=== PATIENT | male | born 1985 | race African-American/Black ===

== ENCOUNTER 2016-07-15 07:56 | Emergency (ER) | payer OTHER ==
[~2016-07-15] VITALS: Ht 175.3 cm; Wt 93.0 kg
[~2016-07-15 07:56] MED LIST: BACLOFEN10 M1 PO; FLEXERIL10 MG PO; IBUPROFEN600 M1 PO; MOBIC15 MG PO; ULTRAM50 M1 PO
[2016-07-15] MEDS ORDERED: NASONEX17 GM NASB (08:21)
[2016-07-15] MEDS ORDERED: IBUPROFEN800 M1 PO (08:21)
[2016-07-15] MEDS ORDERED: AMOXICILLIN875 M1 PO (08:21)
--- NOTE | 2016-07-15 08:22 | ED THROAT/DENTAL COMPLAINT ---
History of Present Illness General Chief Complaint: Sore Throat, Dental Pain Stated Complaint: SORE THROAT Source: patient Exam Limitations: no limitations Vital Signs & Intake/Output Vital Signs & Intake/Output Vital Signs Date Time Temp Pulse Resp B/P B/P Pulse O2 O2 Flow FiO2 Mean Ox Delivery Rate 07/15 0829 97.1 80 18 134/96 97 Room Air 07/15 0758 98.0 82 20 172/93 98 Room Air Allergies Coded Allergies: NO KNOWN ALLERGIES (04/29/15) Reconcile Medications Amoxicillin 875 MG TABLET 1 TAB PO BID pharyngitis Ibuprofen 800 MG TABLET 1 TAB PO TID pain Mometasone Furoate (Nasonex) 50 MCG SPRAY.PUMP 2 SPRAY NASB DAILY congestion Triage Note: PT TO ED C/O SORE THROAT. STATES "I FEEL LIKE I CAN'T BREATH". PT WAS GIVEN ABX FOR BRONCHITIS ON WEDNESDAY, DID NOT EMU FARMER RX. AFEBRILE. Triage Nurses Notes Reviewed? yes Onset: Abrupt Duration: day(s):, constant, continues in ED Timing: recent history Injury Environment: home No Modifying Factors: none HPI: 31-year-old male comes into emergency room for further evaluation of sore throat. Patient reports that he has been sick for a couple weeks with a cough. Some associated pain when he coughs in his chest. Some ear pain and headaches. Patient reports that he went to [facility] couple days ago and they told him he had bronchitis. Patient was given prescriptions for antibiotics and abut never picked him up. He reports that today she woke up and his throat was sore. It hurts in his glands in his neck. He has pain when he swallows. That is primarily why he came in today. Denies any fever. Denies any vomiting. Denies any current chest pain. Denies any shortness of breath or any other concerns worsening symptoms. (TELMA MARTINEZ) Past History Travel History Traveled to [place] past 21 day No Medical History Any Pertinent Medical History? none Surgical History Surgical History: N Psychosocial History What is your primary language Frisian Tobacco Use: Never used ETOH Use: occasional use Illicit Drug Use: denies illicit drug use Family History Hx Contributory? No (TELMA MARTINEZ) Review of Systems Review of Systems Constitutional: Reports: no symptoms. EENTM: Reports: see HPI. Respiratory: Reports: no symptoms. Cardiovascular: Reports: no symptoms. GI: Reports: no symptoms. Genitourinary: Reports: no symptoms. Musculoskeletal: Reports: no symptoms. Skin: Reports: no symptoms. Neurological/Psychological: Reports: no symptoms. Hematologic/Endocrine: Reports: no symptoms. Immunologic/Allergic: Reports: no symptoms. All Other Systems: Reviewed and Negative (TELMA MARTINEZ) Physical Exam Physical Exam General Appearance: well developed/nourished, alert, awake Head: atraumatic, normal appearance Eyes: Bilateral: normal appearance, PERRL, EOMI. Ears: Bilateral: canal normal. Nose: normal inspection Mouth/Throat: normal mouth inspection, pharynx swelling, pharyngeal erythema Neck: normal inspection, full range of motion Cardiovascular/Respiratory: regular rate/rhythm, no respiratory distress Back: normal inspection Neurologic/Psych: awake, alert, oriented x 3, normal gait, normal mood/affect Skin: intact, normal color Core Measures ACS in differential dx? No Severe Sepsis Present: No Septic Shock Present: No (TELMA MARTINEZ) Progress Differential Diagnosis: aspirated tooth, carious tooth, epiglottitis, Ludwigs angina, meningitis, odontogenic abscess, lety-tonsillar abscess, pharyngeal for. body, stomatitis/gingivitis, strep pharyngitis, tooth fracture Plan of Care: Orders Procedure Date/time Status THROAT CULTURE W/QUICK STREP 07/15 0759 Active Departure Departure Disposition: HOME OR SELF CARE Condition: Stable Clinical Impression Primary Impression: Pharyngitis Referrals: PATIENT HAS NO PRIMARY CARE DR (PCP/Family) Additional Instructions: Take amoxicillin as prescribed. Follow-up with your primary care doctor. Return if any concerns worsening symptoms. Please go over all results of today's visit with your primary care doctor. Contact your primary care doctor to let them know you were here in the emergency room. There may be nonspecific findings which may not be related to your visit today here in the emergency room but may require further evaluation and chronic monitoring by your primary care doctor. If you had a laceration today the chance of foreign body always remains. You should follow-up with your primary care doctor for recheck in 3-5 days for a wound check. If you had an x-ray done there is a chance that a fracture could have been missed on initial read and you should follow-up with your primary care doctor for repeat x-rays if symptoms persist. If your blood pressure was elevated here in the emergency room please have rechecked by her primary care doctor within the next 48 hours by your primary care doctor. If you were prescribed a narcotic here in the emergency room or any type of controlled substances you're not allowed to drive while taking this medication or operate any type of heavy machinery. Narcotics can make you feel lightheaded dizziness nausea and can cause constipation. You may need to worm picker a stool softener. Thank you for choosing [facility] emergency room. Please return to the emergency room immediately if you have any other concerns worsening of symptoms. Departure Forms: Customer Survey General Discharge Information Prescriptions: Current Visit Scripts Amoxicillin 1 TAB PO BID #20 TAB Mometasone Furoate (Nasonex) 2 SPRAY NASB DAILY #1 INHAL Ibuprofen 1 TAB PO TID #20 TAB Comments 07/15/2016 9:18:43 AM Patient clinically looks well. Patient is in no apparent distress. Patient is nontoxic-appearing. Patient is in no apparent distress. Patient has no evidence of airway compromise. Symptoms are most consistent with viral pharyngitis. Return if any other concerns. (TELMA MARTINEZ) PA/FREIGHT TRUCKER Co-Sign Statement Statement: ED Attending supervision documentation- [] I saw and evaluated the patient. I have also reviewed all the pertinent lab results and diagnostic results. I agree with the findings and the plan of care as documented in the PA's/FREIGHT TRUCKER's documentation. x I have reviewed the ED Record and agree with the PA's/FREIGHT TRUCKER's documentation. [] Additions or exceptions (if any) to the PAs/FREIGHT TRUCKER's note and plan are summarized below: [] (DAMIÁN HERRERA,MARIANA)
[2016-07-15 08:29] VITALS: BP 134/96
== END 2016-07-15 08:31 ==
LOC: ERH 07:56
DX: J02.9 Acute pharyngitis, unspecified (principal)
CPT/HCPCS: 87147